=== PATIENT | female | born 1995 ===

== ENCOUNTER 2019-02-20 01:55 | Day surgery (SDC) | payer OTHER ==
[~2019-02-20] VITALS: Ht 170.2 cm; Wt 95.3 kg
[~2019-02-20 01:55] MED LIST: CHOL10005 PO; MULT1TAB64 PO; OMEG10007
[2019-02-20 07:00] VITALS: BP 133/92
[2019-02-20] MEDS ORDERED: NORMOSOL R SOLN(*) 1000 ML BAG 1,000 ML IV PRN (07:20)
[2019-02-20] MEDS ORDERED: LIDOCAINE/SOD BICARB 8.4% SYR ID ONE (07:20)
[2019-02-20] MEDS ORDERED: PROPOFOL EMUL(*) 10MG/ML 20 ML 40 ML ONE (07:40)
[2019-02-20] MEDS ORDERED: LIDOCAINE MPF 1% 5 ML VIAL ONE (07:40)
[2019-02-20 08:58] VITALS: BP 102/65
--- NOTE | 2019-02-20 09:07 | Short(Outpt) Discharge Summary ---
Discharge Summary Reason for Hosp/Final Diag: (1) Blood in stool Hospital Course & Plan: pt presented for colonoscopy. she tolerated the procedure well. she will be discharged home when criteria met. Departure Discharge to: Home Discharge Instructions Home Meds Reported Medications Cholecalciferol (Vitamin D3) (VITAMIN D3) 1,000 Unit Tablet, 1000 UNIT PO, TAB 01/18/19 Matthews-3/Dha/Epa/Fish Oil (Fish Oil 1,000 mg Softgel) 1,000 Mg (120 Mg-180 Mg) Capsule 01/18/19 Multivitamin (MULTI VITAMIN DAILY) 1 Each Tablet, 1 EACH PO 01/18/19 Diet: Regular Activity: As Tolerated Special Instructions: we will call you in 10 days with biopsy results. WYATT ROCHE Feb 20, 2019 09:07
[2019-02-20 09:30] VITALS: BP 121/72
[2019-02-20 09:45] VITALS: BP 121/82
[2019-02-20 09:48] VITALS: BP 115/62
--- NOTE | 2019-02-20 10:20 | NUR ---
0858 PT REC'D IN SD VIA CART SAFETY MAINTAINED, VSS, FRIEND JOYA AT BEDSIDE, RESTING L LATERAL POSITION 09 DR. ROCHE AT BEDSIDE 09 VSS, PT TOLERATING CHOCOLATE PUDDING AND WATER 0940 ORTHOSTATICS DONE BY Marie ADLER RN, STABLE, ALLOWED TO DRESS 0950 IV OUT, D/C INSTRUCTIONS COVERED 1000 OUT TO CAR OUTSIDE PT ADMITTING ENTRANCE, STEADY ON FEET, LIBRARY BOOK LEFT BEHIND, CALLED PT TO P/U IN ER
== END 2019-02-20 10:00 | disposition home or self-care (01) ==
LOC: OR 01:55
PROVIDERS: ATTEND Surgery
DX: K92.1 Melena (principal); R19.7 Diarrhea, unspecified
CPT/HCPCS: 00811; 45380; 88305; J2001; J2704